=== PATIENT | female | born 1965 | race Caucasian/White ===

== ENCOUNTER 2022-04-05 19:44 | Emergency (ER) | payer BC ==
[~2022-04-05] VITALS: Ht 149.9 cm; Wt 62.6 kg
[2022-04-05 19:49] VITALS: BP_SYST 109
[2022-04-05] MEDS ORDERED: HYDROcodone/ACETAMIN 10-325 MG TAB PO ONE (20:15)
[2022-04-05] MEDS ORDERED: PROPOFOL 200MG/ 20ML VIAL (DIPRIVAN) IV ONE (21:00)
[2022-04-05] MEDS ORDERED: NACL 0.9% 1,000 ML IV ONE (21:00)
[2022-04-05] MEDS ORDERED: KETAMINE 30 MG/3 ML SYRINGE IVP ONE (21:00)
[2022-04-05] MEDS ORDERED: BACITRACIN 1 GM OINT TP ONE (21:59)
[2022-04-05] MEDS ORDERED: IBUP-1969 PO (22:22)
[2022-04-05] MEDS ORDERED: HYDR-3921 PO (22:22)
[2022-04-05] MEDS ORDERED: HYDROcodone/ACETAMIN 10-325 MG TAB ONE (22:52)
[2022-04-05 23:41] VITALS: BP_SYST 133
== END 2022-04-05 23:30 | disposition home or self-care (01) ==
LOC: SED 19:44
DX: S53.125A Posterior dislocation of left ulnohumeral joint, initial encounter (principal); Z79.899 Other long term (current) drug therapy; W01.198A Fall on same level from slipping, tripping and stumbling with subsequent striking against other object, initial encounter; Y93.89 Activity, other specified; Y92.89 Other specified places as the place of occurrence of the external cause; Y99.8 Other external cause status
CPT/HCPCS: 24600; 73070; 96360; 99152; 99285; J2704; J7030